=== PATIENT | female | born 1990 | race Caucasian/White ===

== ENCOUNTER → 2021-02-26 07:55 | Outpatient (CLI) | payer MEDICAID ==
[2016-01-25 09:22] VITALS: BMI 16.3
[~2021-02-26 07:55] MED LIST: HYDROCODONE-APA1 TAB PO; IBUPROFEN600 MG PO; PRENAVITE1 TAB PO; TYLENOL W/CODEI1 TAB PO
== END | disposition home or self-care (01) ==
LOC: D.US 07:55
PROVIDERS: ATTEND Family Medicine
DX: N80.9 Endometriosis, unspecified (principal)